=== PATIENT | male | born 1940 | race Two or more races ===

== ENCOUNTER 2019-02-15 11:31 | Inpatient (IN) | payer SELFPAY ==
[~2019-02-15] VITALS: Ht 167.6 cm; Wt 70.3 kg
--- NOTE | 2019-02-15 12:01 | PHYS DOC ---
Past Medical History Past Medical History: Diabetes-Type II, Hypertension Adult General Chief Complaint Chief Complaint: BLOOD SUGAR PROBLEM HPI HPI Patient is a 78 year old male with history of diabetes type 2, hypertension, who presents to the ED today complaining of his blood pressure, blood sugar acting up for 2 days. Patient is also complaining of nausea and diarrhea. Patient states he recently moved to the [facility] from [place] to be with his children. He states when the numbers were checked 2 days ago at home both the blood sugar and blood pressures were high. He is on metformin and Losartan and states he is complaint Drug Safety Physician line was used for Chinese. Review of Systems Review of Systems Constitutional: Denies fever or chills [] Eyes: Denies change in visual acuity, redness, or eye pain [] HENT: Denies nasal congestion or sore throat [] Respiratory: Denies cough or shortness of breath [] Cardiovascular: Reports hypertension. No additional information not addressed in HPI [] GI: Reports nausea and diarrhea. Denies abdominal pain, vomiting, bloody stools : Denies dysuria or hematuria [] Musculoskeletal: Denies back pain or joint pain [] Integument: Denies rash or skin lesions [] Neurologic: Denies headache, focal weakness or sensory changes [] Endocrine: Reports high blood glucose All other systems were reviewed and found to be within normal limits, except as documented in this note. Current Medications Current Medications Current Medications Medications (Trade) Dose Ordered Sig/Ross Start Time Stop Time Status Last Admin Dose Admin Clonidine HCl (Catapres) 0.2 mg 1X ONCE 02/15/19 12:15 02/15/19 12:16 DC 02/15/19 12:49 0.2 MG Info (CONTRAST GIVEN -- Rx MONITORING) 1 each PRN DAILY PRN 02/15/19 13:30 02/17/19 13:29 Iohexol (Omnipaque 300 Mg/ml) 75 ml 1X ONCE 02/15/19 13:30 02/15/19 13:31 DC 02/15/19 13:40 75 ML Labetalol HCl (Normodyne Iv Push) 10 mg 1X ONCE 02/15/19 12:15 02/15/19 12:16 DC 02/15/19 12:55 10 MG Ondansetron HCl (Zofran) 4 mg 1X ONCE 02/15/19 12:45 02/15/19 12:46 DC 02/15/19 12:56 4 MG Sodium Chloride 1,000 ml @ 1,000 mls/hr 1X ONCE 02/15/19 12:45 02/15/19 13:44 DC 02/15/19 12:51 1,000 MLS/HR Allergies Allergies Allergies Coded Allergies Type Severity Reaction Last Updated Verified No Known Drug Allergies 02/15/19 No Physical Exam Physical Exam Constitutional: Well developed, well nourished, no acute distress, non-toxic appearance. [] HENT: Normocephalic, atraumatic, bilateral external ears normal, oropharynx moist, no oral exudates, nose normal. [] Eyes: PERRLA, EOMI, conjunctiva normal, no discharge. Left pupil appears began on the right. Neck: Normal range of motion, no tenderness, supple, no stridor. [] Cardiovascular:Heart rate regular rhythm, no murmur [] Lungs & Thorax: Bilateral breath sounds clear to auscultation [] Abdomen: Bowel sounds normal, soft, no tenderness, no masses, no pulsatile masses. [] Skin: Warm, dry, no erythema, no rash. [] Back: No tenderness, no CVA tenderness. [] Extremities: No tenderness, no cyanosis, no clubbing, ROM intact, no edema. [] Neurologic: Alert and oriented X 3, normal motor function, normal sensory function, no focal deficits noted. Cranial nerves II through XII intact. Psychologic: Affect normal, judgement normal, mood normal. [] Current Patient Data Vital Signs Vital Signs Date Time Temp Pulse Resp B/P (MAP) Pulse Ox O2 Delivery O2 Flow Rate FiO2 02/15/19 12:55 90 176/85 Lab Values Laboratory Tests Test 02/15/19 11:46 02/15/19 12:25 Glucose (Fingerstick) 144 mg/dL (70-99) H White Blood Count 8.4 x10^3/uL (4.0-11.0) Red Blood Count 4.54 x10^6/uL (4.30-5.70) Hemoglobin 14.7 g/dL (13.0-17.5) Hematocrit 43.0 % (39.0-53.0) Mean Corpuscular Volume 95 fL (79-100) Mean Corpuscular Hemoglobin 32 pg (25-35) Mean Corpuscular Hemoglobin Concent 34 g/dL (31-37) Red Cell Distribution Width 13.5 % (11.5-14.5) Platelet Count 215 x10^3/uL (140-400) Neutrophils (%) (Auto) 69 % (31-73) Lymphocytes (%) (Auto) 24 % (24-48) Monocytes (%) (Auto) 5 % (0-9) Eosinophils (%) (Auto) 1 % (0-3) Basophils (%) (Auto) 1 % (0-3) Neutrophils # (Auto) 5.9 x10^3uL (1.8-7.7) Lymphocytes # (Auto) 2.0 x10^3/uL (1.0-4.8) Monocytes # (Auto) 0.4 x10^3/uL (0.0-1.1) Eosinophils # (Auto) 0.1 x10^3/uL (0.0-0.7) Basophils # (Auto) 0.1 x10^3/uL (0.0-0.2) Segmented Neutrophils % 55 % (35-66) Band Neutrophils % 19 % (0-9) H Lymphocytes % 18 % (24-48) L Atypical Lymphocytes % (Manual) 4 % (0-0) H Monocytes % 3 % (0-10) Metamyelocytes % 1 % (0-0) H Platelet Estimate Adequate (ADEQUATE) Prothrombin Time 11.6 SEC (11.7-14.0) L Prothrombin Time INR 0.9 (0.8-1.1) Sodium Level 139 mmol/L (136-145) Potassium Level 3.2 mmol/L (3.5-5.1) L Chloride Level 101 mmol/L (98-107) Carbon Dioxide Level 28 mmol/L (21-32) Anion Gap 10 (6-14) Blood Urea Nitrogen 20 mg/dL (8-26) Creatinine 0.9 mg/dL (0.7-1.3) Estimated GFR (Cockcroft-Gault) 82.0 BUN/Creatinine Ratio 22 (6-20) H Glucose Level 157 mg/dL (70-99) H Calcium Level 9.4 mg/dL (8.5-10.1) Magnesium Level 1.3 mg/dL (1.8-2.4) L Total Bilirubin 1.4 mg/dL (0.2-1.0) H Aspartate Amino Transferase (AST) 30 U/L (15-37) Alanine Aminotransferase (ALT) 40 U/L (16-63) Alkaline Phosphatase 82 U/L (46-116) Creatine Kinase 40 U/L (39-308) Creatine Kinase MB (Mass) 1.2 ng/mL (0.0-3.6) Creatine Kinase MB Relative Index % (0-4) Troponin I Quantitative < 0.017 ng/mL (0.000-0.055) RM-Yre-H-Type Natriuretic Peptide 564 pg/mL (0-449) H Total Protein 7.1 g/dL (6.4-8.2) Albumin 3.5 g/dL (3.4-5.0) Albumin/Globulin Ratio 1.0 (1.0-1.7) Lipase 549 U/L (73-393) H Laboratory Tests 02/15/19 12:25 Laboratory Tests 02/15/19 12:25 EKG EKG Interpreted by Dr. Paris sinus rhythm heart rate 95 no STEMI Radiology/Procedures Radiology/Procedures []PROCEDURE: CT ABD PELV W/ IV CONTRST ONLY Examination: CT of the abdomen pelvis with IV contrast HISTORY: History of nausea, diarrhea, elevated lipase COMPARISON: 11/16/2012 TECHNIQUE: Axial CT images of the abdomen pelvis were performed with IV contrast. Coronal and sagittal reformatted performed Exposure: One or more of the following individualized dose reduction techniques were utilized for this examination: 1. Automated exposure control 2. Adjustment of the mA and/or kV according to patient size 3. Use of iterative reconstruction technique FINDINGS: Minimal bibasilar lung atelectasis. There is a small nodule identified in the left lower lobe of the lung measuring 5 mm. No evidence of free air identified in the abdomen. The visualized liver, spleen, adrenals grossly appears unremarkable the gallbladder is mildly distended The stomach is mildly distended. There is a tiny fatty density identified in the distal pancreas measuring 7 mm. The small bowel is nondilated Feces and gas noted in the colon. Urinary bladder is mildly distended The bilateral kidneys enhance symmetrically. There is a cystic structure identified in the inferior pole of the left kidney measuring 1.1 cm cystic density identified in the right kidney measuring 1.4 cm likely cysts. Multiple colonic diverticulosis. There is mild thickened appearance of the wall of the descending colon.. Urinary bladder is mildly distended Mildly enlarged prostate gland. Focus of sclerotic density identified in the posterior left iliac bone. Moderate degenerative changes. Lumbar spine. IMPRESSION: 1. Mild thickened appearance of the wall of the descending colon could be due to nondistention or mild colitis. 2. Tiny 7 mm fatty density identified in the distal pancreas, nonspecific likely benign. Follow-up nonemergent MRI may be useful for further evaluation. 3. Bilateral renal cysts. 4. Focus of sclerotic density identified in the posterior left iliac bone could be prior biopsy site however a sclerotic bone lesion is not excluded. Recommend nonemergent bone scan for further evaluation. Electronically signed by: Jorge Delatorre MD (02/15/2019 1:54 PM) [id number] DICTATED and SIGNED BY: JORGE DELATORRE MD DATE: 02/15/19 1354 Course & Med Decision Making Course & Med Decision Making Pertinent Labs and Imaging studies reviewed. (See chart for details) This is a 78-year-old male presenting to the ED today complaining of elevated blood glucose and blood pressure for the last 2 days. Also complaining of nausea and diarrhea. Patient states just came from [place]. He is on metformin and losartan. CBC with normal WBC, CMP with potassium of 3.2, patient was given oral potassium replacement. Glucose 157, magnesium 1.3, IV magnesium was ordered, lipase 549. CT of the abdomen and pelvic is negative for pancreatitis, noted for mild colitis. Blood pressures were in the low 200s over low 100s on arrival to the ED. Patient was given labetalol and clonidine. Consulted with Sury SCHMITZ for GI who will follow-up with patient. Consulted with Dr. Salcedo who accepted patient for admission. Patient was continued on IV fluids. Dragon Disclaimer Dragon Disclaimer This electronic medical record was generated, in whole or in part, using a voice recognition dictation system. Departure Departure Impression: Primary Impression: Acute pancreatitis Additional Impressions: Hypomagnesemia Hypokalemia Colitis Hyperglycemia Accelerated hypertension Disposition: 09 ADMITTED INPATIENT Condition: STABLE Problem Qualifiers Primary Impression: Acute pancreatitis Pancreatitis type: unspecified pancreatitis type Acute pancreatitis complication: unspecified Qualified Codes: K85.90 - Acute pancreatitis without necrosis or infection, unspecified DAVID GARDNER SPECIFICATIONS WRITER Feb 15, 2019 12:01
--- NOTE | 2019-02-15 12:10 | EKG ---
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
[2019-02-15] MEDS ORDERED: LABETALOL 20 MG/4 ML DISP.SYRIN. IVP ONE (12:15)
[2019-02-15] MEDS ORDERED: cloNIDine HCL 0.1 MG TABLET PO ONE (12:15)
--- NOTE | 2019-02-15 12:26 | RAD ---
EXAM: CHEST 1 VIEW History: Hypertension COMPARISON: None available. TECHNIQUE: Single portable radiograph of the chest FINDINGS: The cardiac silhouette is unremarkable. The lungs are clear bilaterally. The costophrenic sulci are clear and well demarcated. IMPRESSION: No radiographic evidence of an acute cardiopulmonary process. Electronically signed by: Jorge Delatorre MD (02/15/2019 12:23 PM) [id number]
[2019-02-15 12:36] LABS: BASO # 0.1 x10^3/uL (0.0-0.2); BASO % 1 % (0-3); EOS # 0.1 x10^3/uL (0.0-0.7); EOS % 1 % (0-3); HEMOGLOBIN 14.7 g/dL (13.0-17.5); LYMPH % 24 % (24-48); MEAN CORPUSCULAR HEMOGLOBIN 32 pg (25-35); MEAN CORPUSCULAR HGB CONC 34 g/dL (31-37); MEAN CORPUSCULAR VOLUME 95 fL (79-100); MONO # 0.4 x10^3/uL (0.0-1.1); MONO % 5 % (0-9); NEUT # 5.9 x10^3uL (1.8-7.7); NEUT % 69 % (31-73); PLATELET COUNT 215 x10^3/uL (140-400); RED BLOOD COUNT 4.54 x10^6/uL (4.30-5.70); RED CELL DISTRIBUTION WIDTH 13.5 % (11.5-14.5); WHITE BLOOD COUNT 8.4 x10^3/uL (4.0-11.0)
[2019-02-15] MEDS ORDERED: ONDANSETRON PF 4 MG/2 ML VIAL. IV ONE (12:45)
[2019-02-15] MEDS ORDERED: IV NORMAL SALINE 1000ML BAG 1,000 ML IV ONE ×2 (12:45→15:15)
[2019-02-15 12:47] LABS: PROTHROMBIN TIME PATIENT 11.6 SEC (11.7-14.0)
[2019-02-15 12:48] LABS: CALCIUM 9.4 mg/dL (8.5-10.1); CREATININE 0.9 mg/dL (0.7-1.3); POTASSIUM 3.2 mmol/L (3.5-5.1)
[2019-02-15 12:53] LABS: ALBUMIN 3.5 g/dL (3.4-5.0); MAGNESIUM 1.3 mg/dL (1.8-2.4); TOTAL BILIRUBIN 1.4 mg/dL (0.2-1.0); TOTAL PROTEIN 7.1 g/dL (6.4-8.2)
--- NOTE | 2019-02-15 12:54 | RAD ---
CT HEAD INDICATION: Hypertension COMPARISON: None Available. Exposure: One or more of the following individualized dose reduction techniques were utilized for this examination: 1. Automated exposure control 2. Adjustment of the mA and/or kV according to patient size 3. Use of iterative reconstruction technique TECHNIQUE: 5 mm contiguous axial images were obtained from the skull base to the vertex in both bone and soft tissue algorithm. FINDINGS: Mild bilateral periventricular white matter hypodensities likely chronic small vessel ischemic disease. No evidence of acute intracranial hemorrhage. No extra-axial fluid collections. No mass effect or midline shift. Ventricular size is appropriate. Basal cisterns are patent. No fractures identified.Loyola-white differentiation is preserved.Globes and orbits are within normal limits. Mild mucosal thickening left maxillary sinus. IMPRESSION: No acute intracranial findings. Electronically signed by: Jorge Delatorre MD (02/15/2019 12:51 PM) [id number]
[2019-02-15 13:02] LABS: CREATINE KINASE 40 U/L (39-308)
[2019-02-15 13:17] LABS: % ATYL 4 % (0-0); % BANDS 19 % (0-9); % LYMPHS 18 % (24-48); % MONOS 3 % (0-10); PLT ESTIMATE ADEQUATE (ADEQUATE)
[2019-02-15 13:18] LABS: % METAS 1 % (0-0); % SEGS 55 % (35-66)
[2019-02-15] MEDS ORDERED: CONTRAST GIVEN. MC PRN (13:30)
[2019-02-15] MEDS ORDERED: IOHEXOL 300 MG/ML 100ML VIAL. IV ONE (13:30)
--- NOTE | 2019-02-15 13:57 | RAD ---
Examination: CT of the abdomen pelvis with IV contrast HISTORY: History of nausea, diarrhea, elevated lipase COMPARISON: 11/16/2012 TECHNIQUE: Axial CT images of the abdomen pelvis were performed with IV contrast. Coronal and sagittal reformatted performed Exposure: One or more of the following individualized dose reduction techniques were utilized for this examination: 1. Automated exposure control 2. Adjustment of the mA and/or kV according to patient size 3. Use of iterative reconstruction technique FINDINGS: Minimal bibasilar lung atelectasis. There is a small nodule identified in the left lower lobe of the lung measuring 5 mm. No evidence of free air identified in the abdomen. The visualized liver, spleen, adrenals grossly appears unremarkable the gallbladder is mildly distended The stomach is mildly distended. There is a tiny fatty density identified in the distal pancreas measuring 7 mm. The small bowel is nondilated Feces and gas noted in the colon. Urinary bladder is mildly distended The bilateral kidneys enhance symmetrically. There is a cystic structure identified in the inferior pole of the left kidney measuring 1.1 cm cystic density identified in the right kidney measuring 1.4 cm likely cysts. Multiple colonic diverticulosis. There is mild thickened appearance of the wall of the descending colon.. Urinary bladder is mildly distended Mildly enlarged prostate gland. Focus of sclerotic density identified in the posterior left iliac bone. Moderate degenerative changes. Lumbar spine. IMPRESSION: 1. Mild thickened appearance of the wall of the descending colon could be due to nondistention or mild colitis. 2. Tiny 7 mm fatty density identified in the distal pancreas, nonspecific likely benign. Follow-up nonemergent MRI may be useful for further evaluation. 3. Bilateral renal cysts. 4. Focus of sclerotic density identified in the posterior left iliac bone could be prior biopsy site however a sclerotic bone lesion is not excluded. Recommend nonemergent bone scan for further evaluation. Electronically signed by: Jorge Delatorre MD (02/15/2019 1:54 PM) [id number]
[2019-02-15] MEDS ORDERED: MORPHINE SULFATE 2 MG/ML VIAL. IV PRN (15:15)
[2019-02-15] MEDS ORDERED: ONDANSETRON PF 4 MG/2 ML VIAL. IV PRN (15:15)
[2019-02-15] MEDS ORDERED: MAGNESIUM SULFATE 1GM 100 ML IV ONE (15:15)
[2019-02-15] MEDS ORDERED: POTASSIUM CHLORIDE 20 MEQ TABLET.ER. PO ONE ×2 (15:15→22:30)
--- NOTE | 2019-02-15 15:42 | PDOC2 ---
GI CONSULT Reason For Consult: Pancreatitis HPI: HPI: 78 y/o Slovenian-speaking male seen in ER. 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 Tells me he came to the ER because his blood pressure was elevated - says "250." Additionally, his glucose has also been high at some so he has been trying to eat as much. He denies n/v, reflux/heartburn, dysphagia, abd pain, constipation, hematochezia , melena, and weight loss. Has had some diarrhea x 4 days. Denies precipitating events. Thinks has about 4 loose stools daily - says "it got better but might have started again." No previous EGD or colonoscopy. No GB, liver, pancreas, or PUD history. No NSAIDs. Labs note K 3.2, glucose 157, Mag 1.3, bili 1.4, lipase 549. On CT: mildly distended GB and stomach, tiny 7mm fatty density in the distal pancreas measuring 7 mm, mild thickened appearance of the wall of the descending colon (nondistention vs colitis), and diverticulosis. PMH: PMH: HTN, DM, appendectomy FH: Family History: No pertinent hx (denies cancers) Social History: Smoke: No ALCOHOL: none ROS: GEN: Denies fevers, chills, sweats HEENT: Denies blurred vision, sore throat CV: Denies chest pain RESP: Denies shortness of air, cough GI: Per HPI : Denies hematuria, dysuria ENDO: Denies weight changes NEURO: Denies confusion, dizziness MSK: Denies weakness, joint pain/swelling SKIN: Denies jaundice, pruritus Vitals: Vitals: Vital Signs Date Time Temp Pulse Resp B/P (MAP) Pulse Ox O2 Delivery O2 Flow Rate FiO2 02/15/19 12:55 90 176/85 Labs: Labs: Laboratory Tests Test 02/15/19 11:46 02/15/19 12:25 Glucose (Fingerstick) 144 mg/dL (70-99) White Blood Count 8.4 x10^3/uL (4.0-11.0) Red Blood Count 4.54 x10^6/uL (4.30-5.70) Hemoglobin 14.7 g/dL (13.0-17.5) Hematocrit 43.0 % (39.0-53.0) Mean Corpuscular Volume 95 fL (79-100) Mean Corpuscular Hemoglobin 32 pg (25-35) Mean Corpuscular Hemoglobin Concent 34 g/dL (31-37) Red Cell Distribution Width 13.5 % (11.5-14.5) Platelet Count 215 x10^3/uL (140-400) Neutrophils (%) (Auto) 69 % (31-73) Lymphocytes (%) (Auto) 24 % (24-48) Monocytes (%) (Auto) 5 % (0-9) Eosinophils (%) (Auto) 1 % (0-3) Basophils (%) (Auto) 1 % (0-3) Neutrophils # (Auto) 5.9 x10^3uL (1.8-7.7) Lymphocytes # (Auto) 2.0 x10^3/uL (1.0-4.8) Monocytes # (Auto) 0.4 x10^3/uL (0.0-1.1) Eosinophils # (Auto) 0.1 x10^3/uL (0.0-0.7) Basophils # (Auto) 0.1 x10^3/uL (0.0-0.2) Segmented Neutrophils % 55 % (35-66) Band Neutrophils % 19 % (0-9) Lymphocytes % 18 % (24-48) Atypical Lymphocytes % (Manual) 4 % (0-0) Monocytes % 3 % (0-10) Metamyelocytes % 1 % (0-0) Platelet Estimate Adequate (ADEQUATE) Prothrombin Time 11.6 SEC (11.7-14.0) Prothromb Time International Ratio 0.9 (0.8-1.1) Sodium Level 139 mmol/L (136-145) Potassium Level 3.2 mmol/L (3.5-5.1) Chloride Level 101 mmol/L (98-107) Carbon Dioxide Level 28 mmol/L (21-32) Anion Gap 10 (6-14) Blood Urea Nitrogen 20 mg/dL (8-26) Creatinine 0.9 mg/dL (0.7-1.3) Estimated GFR (Cockcroft-Gault) 82.0 BUN/Creatinine Ratio 22 (6-20) Glucose Level 157 mg/dL (70-99) Calcium Level 9.4 mg/dL (8.5-10.1) Magnesium Level 1.3 mg/dL (1.8-2.4) Total Bilirubin 1.4 mg/dL (0.2-1.0) Aspartate Amino Transf (AST/SGOT) 30 U/L (15-37) Alanine Aminotransferase (ALT/SGPT) 40 U/L (16-63) Alkaline Phosphatase 82 U/L (46-116) Creatine Kinase 40 U/L (39-308) Creatine Kinase MB (Mass) 1.2 ng/mL (0.0-3.6) Creatine Kinase MB Relative Index % (0-4) Troponin I Quantitative < 0.017 ng/mL (0.000-0.055) [id number] Natriuretic Peptide 564 pg/mL (0-449) Total Protein 7.1 g/dL (6.4-8.2) Albumin 3.5 g/dL (3.4-5.0) Albumin/Globulin Ratio 1.0 (1.0-1.7) Lipase 549 U/L (73-393) Allergies: Coded Allergies: No Known Drug Allergies (Unverified , 02/15/19) Medications: Current Medications Medications (Trade) Dose Ordered Sig/Ross Route PRN Reason Start Time Stop Time Status Last Admin Dose Admin Labetalol HCl (Normodyne Iv Push) 10 mg 1X ONCE IVP 02/15/19 12:15 02/15/19 12:16 DC 02/15/19 12:55 Clonidine HCl (Catapres) 0.2 mg 1X ONCE PO 02/15/19 12:15 02/15/19 12:16 DC 02/15/19 12:49 Sodium Chloride 1,000 ml @ 1,000 mls/hr 1X ONCE IV 02/15/19 12:45 02/15/19 13:44 DC 02/15/19 12:51 Ondansetron HCl (Zofran) 4 mg 1X ONCE IV 02/15/19 12:45 02/15/19 12:46 DC 02/15/19 12:56 Iohexol (Omnipaque 300 Mg/ml) 75 ml 1X ONCE IV 02/15/19 13:30 02/15/19 13:31 DC 02/15/19 13:40 Imaging: Imaging: Head CT IMPRESSION: No acute intracranial findings. CXR IMPRESSION: No radiographic evidence of an acute cardiopulmonary process. CT A/P FINDINGS: Minimal bibasilar lung atelectasis. There is a small nodule identified in the left lower lobe of the lung measuring 5 mm. No evidence of free air identified in the abdomen. The visualized liver, spleen, adrenals grossly appears unremarkable the gallbladder is mildly distended. The stomach is mildly distended. There is a tiny fatty density identified in the distal pancreas measuring 7 mm. The small bowel is nondilated. Feces and gas noted in the colon. Urinary bladder is mildly distended. The bilateral kidneys enhance symmetrically. There is a cystic structure identified in the inferior pole of the left kidney measuring 1.1 cm cystic density identified in the right kidney measuring 1.4 cm likely cysts. Multiple colonic diverticulosis. There is mild thickened appearance of the wall of the descending colon. Urinary bladder is mildly distended Mildly enlarged prostate gland. Focus of sclerotic density identified in the posterior left iliac bone. Moderate degenerative changes. Lumbar spine. IMPRESSION: 1. Mild thickened appearance of the wall of the descending colon could be due to nondistention or mild colitis. 2. Tiny 7 mm fatty density identified in the distal pancreas, nonspecific likely benign. Follow-up nonemergent MRI may be useful for further evaluation. 3. Bilateral renal cysts. 4. Focus of sclerotic density identified in the posterior left iliac bone could be prior biopsy site however a sclerotic bone lesion is not excluded. Recommend nonemergent bone scan for further evaluation. PE: GEN: NAD HEENT: Atraumatic, PERRL LUNGS: CTAB HEART: RRR ABD: NABS, S/ND/NT EXTREMITY: No edema SKIN: No rashes, no jaundice NEURO/PSYCH: A & O 3 A/P: A/P: H/o HTN and DM - tells me he came to ER for these reasons Diarrhea Mildly elevated bilirubin and lipase, hypokalemia, hypomagnesemia Abnormal CT - mildly distended GB and stomach, 7mm fatty density in the distal pancreas, mild thickened appearance of wall of descending colon CRC screen - none Diverticulosis -- Unclear significance of mildly elevated lipase and tiny fatty pancreatic density - does not have typical symptoms or risk factors for pancreatitis. Will check RUQ US for completeness. Additional recs per Dr. Cornelius (if any additional pancreatic imaging is indicated). Also unclear significance of mild thickening of descending colon on CT - does mention some diarrhea so will go ahead with stool studies. Okay for clear liquids and ADAT. Can pursue outpt screening colonoscopy. Defer his concerns re: HTN and DM, electrolyte abnormalities, and additional CT findings to primary. RADHA MONTEJO Feb 15, 2019 15:42
--- NOTE | 2019-02-15 16:59 | PDOC1 ---
History and Physical Date of Admission Date of Admission DATE: 02/15/19 TIME: 16:59 Identification/Chief Complaint Chief Complaint SEEN IN ER 78 year old male with history of diabetes type 2, hypertension, who presents to the ED today complaining of his blood pressure, blood sugar up for 2 days. Patient is also complaining of nausea and diarrhea. Patient states he recently moved to the [facility] from [place] to be with his children. He states when the numbers were checked 2 days ago at home both the blood sugar and blood pressures were high. He is on metformin and Losartan and states he is complaint Past Medical History Past Medical History: Diabetes-Type II, Hypertension family hx diabetes Past Medical History Cardiovascular: HTN, Hyperlipidemia Endocrine: Diabetes Family History Family History: Diabetes Social History Smoke: No ALCOHOL: none Drugs: None Current Problem List Problem List Problems Medical Problems: (1) Accelerated hypertension Status: Acute (2) Acute pancreatitis Status: Acute (3) Colitis Status: Acute (4) Hyperglycemia Status: Acute (5) Hypokalemia Status: Acute (6) Hypomagnesemia Status: Acute Current Medications Current Medications Current Medications Labetalol HCl (Normodyne Iv Push) 10 mg 1X ONCE IVP Last administered on at 12:55; Start 02/15/19 at 12:15; Stop 02/15/19 at 12:16; Status DC Clonidine HCl (Catapres) 0.2 mg 1X ONCE PO Last administered on 02/15/19at 12: 49; Start 02/15/19 at 12:15; Stop 02/15/19 at 12:16; Status DC Sodium Chloride 1,000 ml @ 1,000 mls/hr 1X ONCE IV Last administered on at 12:51; Start 02/15/19 at 12:45; Stop 02/15/19 at 13:44; Status DC Ondansetron HCl (Zofran) 4 mg 1X ONCE IV Last administered on 02/15/19at 12:56 ; Start 02/15/19 at 12:45; Stop 02/15/19 at 12:46; Status DC Iohexol (Omnipaque 300 Mg/ml) 75 ml 1X ONCE IV Last administered on 02/15/19at 13:40; Start 02/15/19 at 13:30; Stop 02/15/19 at 13:31; Status DC Info (CONTRAST GIVEN -- Rx MONITORING) 1 each PRN DAILY PRN MC SEE COMMENTS; Start 02/15/19 at 13:30; Stop 02/17/19 at 13:29 Ondansetron HCl (Zofran) 4 mg PRN Q8HRS PRN IV NAUSEA/VOMITING; Start 02/15/19 at 15:15; Stop 02/16/19 at 15:14 Morphine Sulfate (Morphine Sulfate) 2 mg PRN Q2HR PRN IV PAIN; Start 02/15/19 at 15:15; Stop 02/16/19 at 15:14 Sodium Chloride 1,000 ml @ 125 mls/hr 1X ONCE IV ; Start 02/15/19 at 15:15; Stop 02/15/19 at 23:14 Potassium Chloride (Klor-Con) 40 meq 1X ONCE PO Last administered on at 16:08; Start 02/15/19 at 15:15; Stop 02/15/19 at 15:16; Status DC Magnesium Sulfate/ Dextrose 100 ml @ 100 mls/hr 1X ONCE IV Last administered on 02/15/19at 16:13; Start 02/15/19 at 15:15; Stop 02/15/19 at 16:14; Status DC Allergies Allergies: Coded Allergies: No Known Drug Allergies (Unverified , 02/15/19) ROS Review of System Review of Systems Review of Systems Constitutional: Denies fever or chills [] Eyes: Denies change in visual acuity, redness, or eye pain [] HENT: Denies nasal congestion or sore throat [] Respiratory: Denies cough or shortness of breath [] Cardiovascular: Reports hypertension. No additional information not addressed in HPI [] GI: Reports nausea and diarrhea. Denies abdominal pain, vomiting, bloody stools : Denies dysuria or hematuria [] Musculoskeletal: Denies back pain or joint pain [] Integument: Denies rash or skin lesions [] Neurologic: Denies headache, focal weakness or sensory changes [] Endocrine: Reports high blood glucose 14 PT systems were reviewed and found to be within normal limits, except as documented Physical Exam Physical Exam Physical Exam Physical Exam Constitutional: Well developed, well nourished, no acute distress, non-toxic appearance. [] HENT: Normocephalic, atraumatic, bilateral external ears normal, oropharynx moist, no oral exudates, nose normal. [] Eyes: PERRLA, EOMI, conjunctiva normal, no discharge. Left pupil appears began on the right. Neck: Normal range of motion, no tenderness, supple, no stridor. [] Cardiovascular:Heart rate regular rhythm, no murmur [] Lungs & Thorax: Bilateral breath sounds clear to auscultation [] Abdomen: Bowel sounds normal, soft, no tenderness, no masses, no pulsatile masses. [] Skin: Warm, dry, no erythema, no rash. [] Back: No tenderness, no CVA tenderness. [] Extremities: No tenderness, no cyanosis, no clubbing, ROM intact, no edema. [] Neurologic: Alert and oriented X 3, normal motor function, normal sensory function, no focal deficits noted. Cranial nerves II through XII intact. Psychologic: Affect normal, judgement normal, mood normal. [] General: Alert, Oriented X3, Cooperative, mild distress Lungs: Clear to auscultation Heart: RRR, no thrills, no rubs Rectal Exam: not examined Neuro: Cranial nerves 3-12 NL Vitals Vitals Vital Signs Date Time Temp Pulse Resp B/P (MAP) Pulse Ox O2 Delivery O2 Flow Rate FiO2 02/15/19 12:55 90 176/85 Labs Labs Laboratory Tests Test 02/15/19 11:46 02/15/19 12:25 Glucose (Fingerstick) 144 mg/dL (70-99) White Blood Count 8.4 x10^3/uL (4.0-11.0) Red Blood Count 4.54 x10^6/uL (4.30-5.70) Hemoglobin 14.7 g/dL (13.0-17.5) Hematocrit 43.0 % (39.0-53.0) Mean Corpuscular Volume 95 fL (79-100) Mean Corpuscular Hemoglobin 32 pg (25-35) Mean Corpuscular Hemoglobin Concent 34 g/dL (31-37) Red Cell Distribution Width 13.5 % (11.5-14.5) Platelet Count 215 x10^3/uL (140-400) Neutrophils (%) (Auto) 69 % (31-73) Lymphocytes (%) (Auto) 24 % (24-48) Monocytes (%) (Auto) 5 % (0-9) Eosinophils (%) (Auto) 1 % (0-3) Basophils (%) (Auto) 1 % (0-3) Neutrophils # (Auto) 5.9 x10^3uL (1.8-7.7) Lymphocytes # (Auto) 2.0 x10^3/uL (1.0-4.8) Monocytes # (Auto) 0.4 x10^3/uL (0.0-1.1) Eosinophils # (Auto) 0.1 x10^3/uL (0.0-0.7) Basophils # (Auto) 0.1 x10^3/uL (0.0-0.2) Segmented Neutrophils % 55 % (35-66) Band Neutrophils % 19 % (0-9) Lymphocytes % 18 % (24-48) Atypical Lymphocytes % (Manual) 4 % (0-0) Monocytes % 3 % (0-10) Metamyelocytes % 1 % (0-0) Platelet Estimate Adequate (ADEQUATE) Prothrombin Time 11.6 SEC (11.7-14.0) Prothromb Time International Ratio 0.9 (0.8-1.1) Sodium Level 139 mmol/L (136-145) Potassium Level 3.2 mmol/L (3.5-5.1) Chloride Level 101 mmol/L (98-107) Carbon Dioxide Level 28 mmol/L (21-32) Anion Gap 10 (6-14) Blood Urea Nitrogen 20 mg/dL (8-26) Creatinine 0.9 mg/dL (0.7-1.3) Estimated GFR (Cockcroft-Gault) 82.0 BUN/Creatinine Ratio 22 (6-20) Glucose Level 157 mg/dL (70-99) Calcium Level 9.4 mg/dL (8.5-10.1) Magnesium Level 1.3 mg/dL (1.8-2.4) Total Bilirubin 1.4 mg/dL (0.2-1.0) Aspartate Amino Transf (AST/SGOT) 30 U/L (15-37) Alanine Aminotransferase (ALT/SGPT) 40 U/L (16-63) Alkaline Phosphatase 82 U/L (46-116) Creatine Kinase 40 U/L (39-308) Creatine Kinase MB (Mass) 1.2 ng/mL (0.0-3.6) Creatine Kinase MB Relative Index % (0-4) Troponin I Quantitative < 0.017 ng/mL (0.000-0.055) KI-Gui-M-Type Natriuretic Peptide 564 pg/mL (0-449) Total Protein 7.1 g/dL (6.4-8.2) Albumin 3.5 g/dL (3.4-5.0) Albumin/Globulin Ratio 1.0 (1.0-1.7) Lipase 549 U/L (73-393) Laboratory Tests Test 02/15/19 11:46 02/15/19 12:25 Glucose (Fingerstick) 144 mg/dL (70-99) White Blood Count 8.4 x10^3/uL (4.0-11.0) Red Blood Count 4.54 x10^6/uL (4.30-5.70) Hemoglobin 14.7 g/dL (13.0-17.5) Hematocrit 43.0 % (39.0-53.0) Mean Corpuscular Volume 95 fL (79-100) Mean Corpuscular Hemoglobin 32 pg (25-35) Mean Corpuscular Hemoglobin Concent 34 g/dL (31-37) Red Cell Distribution Width 13.5 % (11.5-14.5) Platelet Count 215 x10^3/uL (140-400) Neutrophils (%) (Auto) 69 % (31-73) Lymphocytes (%) (Auto) 24 % (24-48) Monocytes (%) (Auto) 5 % (0-9) Eosinophils (%) (Auto) 1 % (0-3) Basophils (%) (Auto) 1 % (0-3) Neutrophils # (Auto) 5.9 x10^3uL (1.8-7.7) Lymphocytes # (Auto) 2.0 x10^3/uL (1.0-4.8) Monocytes # (Auto) 0.4 x10^3/uL (0.0-1.1) Eosinophils # (Auto) 0.1 x10^3/uL (0.0-0.7) Basophils # (Auto) 0.1 x10^3/uL (0.0-0.2) Segmented Neutrophils % 55 % (35-66) Band Neutrophils % 19 % (0-9) Lymphocytes % 18 % (24-48) Atypical Lymphocytes % (Manual) 4 % (0-0) Monocytes % 3 % (0-10) Metamyelocytes % 1 % (0-0) Platelet Estimate Adequate (ADEQUATE) Prothrombin Time 11.6 SEC (11.7-14.0) Prothromb Time International Ratio 0.9 (0.8-1.1) Sodium Level 139 mmol/L (136-145) Potassium Level 3.2 mmol/L (3.5-5.1) Chloride Level 101 mmol/L (98-107) Carbon Dioxide Level 28 mmol/L (21-32) Anion Gap 10 (6-14) Blood Urea Nitrogen 20 mg/dL (8-26) Creatinine 0.9 mg/dL (0.7-1.3) Estimated GFR (Cockcroft-Gault) 82.0 BUN/Creatinine Ratio 22 (6-20) Glucose Level 157 mg/dL (70-99) Calcium Level 9.4 mg/dL (8.5-10.1) Magnesium Level 1.3 mg/dL (1.8-2.4) Total Bilirubin 1.4 mg/dL (0.2-1.0) Aspartate Amino Transf (AST/SGOT) 30 U/L (15-37) Alanine Aminotransferase (ALT/SGPT) 40 U/L (16-63) Alkaline Phosphatase 82 U/L (46-116) Creatine Kinase 40 U/L (39-308) Creatine Kinase MB (Mass) 1.2 ng/mL (0.0-3.6) Creatine Kinase MB Relative Index % (0-4) Troponin I Quantitative < 0.017 ng/mL (0.000-0.055) AS-Tix-L-Type Natriuretic Peptide 564 pg/mL (0-449) Total Protein 7.1 g/dL (6.4-8.2) Albumin 3.5 g/dL (3.4-5.0) Albumin/Globulin Ratio 1.0 (1.0-1.7) Lipase 549 U/L (73-393) Images Images EXAM: CHEST 1 VIEW History: Hypertension COMPARISON: None available. TECHNIQUE: Single portable radiograph of the chest FINDINGS: The cardiac silhouette is unremarkable. The lungs are clear bilaterally. The costophrenic sulci are clear and well demarcated. IMPRESSION: No radiographic evidence of an acute cardiopulmonary process. Electronically signed by: Jorge Delatorre MD (02/15/2019 12:23 PM) [facility] DICTATED and SIGNED BY: JORGE DELATORRE MD Examination: CT of the abdomen pelvis with IV contrast HISTORY: History of nausea, diarrhea, elevated lipase COMPARISON: 11/16/2012 TECHNIQUE: Axial CT images of the abdomen pelvis were performed with IV contrast. Coronal and sagittal reformatted performed Exposure: One or more of the following individualized dose reduction techniques were utilized for this examination: 1. Automated exposure control 2. Adjustment of the mA and/or kV according to patient size 3. Use of iterative reconstruction technique FINDINGS: Minimal bibasilar lung atelectasis. There is a small nodule identified in the left lower lobe of the lung measuring 5 mm. No evidence of free air identified in the abdomen. The visualized liver, spleen, adrenals grossly appears unremarkable the gallbladder is mildly distended The stomach is mildly distended. There is a tiny fatty density identified in the distal pancreas measuring 7 mm. The small bowel is nondilated Feces and gas noted in the colon. Urinary bladder is mildly distended The bilateral kidneys enhance symmetrically. There is a cystic structure identified in the inferior pole of the left kidney measuring 1.1 cm cystic density identified in the right kidney measuring 1.4 cm likely cysts. Multiple colonic diverticulosis. There is mild thickened appearance of the wall of the descending colon.. Urinary bladder is mildly distended Mildly enlarged prostate gland. Focus of sclerotic density identified in the posterior left iliac bone. Moderate degenerative changes. Lumbar spine. IMPRESSION: 1. Mild thickened appearance of the wall of the descending colon could be due to nondistention or mild colitis. 2. Tiny 7 mm fatty density identified in the distal pancreas, nonspecific likely benign. Follow-up nonemergent MRI may be useful for further evaluation. 3. Bilateral renal cysts. 4. Focus of sclerotic density identified in the posterior left iliac bone could be prior biopsy site however a sclerotic bone lesion is not excluded. Recommend nonemergent bone scan for further evaluation. Electronically signed by: Jorge Delatorre MD (02/15/2019 1:54 PM) [id number] DICTATED and SIGNED BY: JORGE DELATORRE MD DATE: 02/15/19 1354 VTE Prophylaxis Ordered VTE Prophylaxis Devices: Yes VTE Pharmacological Prophylaxi: Yes Assessment/Plan Assessment/Plan IMPRESSION UNCONTROLLED Hypertension, hypertensive urgency hypokalemia diabetes HYPOMAGNESEMIA Mild thickened appearance of the wall of the descending colon could be due to non-distention or mild colitis MILD ELEVATION OF SERUM LIPASE Focus of sclerotic density identified in the posterior left iliac bone could be prior biopsy site however a sclerotic bone lesion is not excluded. Recommend nonemergent bone scan for further evaluation. plan iv hydralazine 10mg q 4 hrs prn bp control GI CONSULT. REPLACE K PO , MG 2 GM IV X 1 DVT PROPHYLAXIS NEEDS pcp PEPE DOWNS MD Feb 15, 2019 16:59
[2019-02-15 17:00] VITALS: BP 142/60
[2019-02-15] MEDS ORDERED: METF850T8 PO (18:46)
[2019-02-15] MEDS ORDERED: LOSA-73 PO (18:46)
[2019-02-15 19:00] VITALS: BP 151/80
[2019-02-15] MEDS ORDERED: MAGNESIUM SULFATE 2GM 50 ML IV ONE (22:30)
[2019-02-15 23:00] VITALS: BP 128/59
[2019-02-16 03:00] VITALS: BP 128/59
[2019-02-16 04:19] LABS: BASO # 0.1 x10^3/uL (0.0-0.2); BASO % 1 % (0-3); EOS # 0.1 x10^3/uL (0.0-0.7); EOS % 1 % (0-3); HEMOGLOBIN 12.2 g/dL (13.0-17.5); LYMPH # 1.5 x10^3/uL (1.0-4.8); LYMPH % 28 % (24-48); MEAN CORPUSCULAR HEMOGLOBIN 32 pg (25-35); MEAN CORPUSCULAR HGB CONC 34 g/dL (31-37); MEAN CORPUSCULAR VOLUME 95 fL (79-100); MONO # 0.3 x10^3/uL (0.0-1.1); MONO % 6 % (0-9); NEUT # 3.3 x10^3uL (1.8-7.7); NEUT % 63 % (31-73); PLATELET COUNT 180 x10^3/uL (140-400); RED BLOOD COUNT 3.79 x10^6/uL (4.30-5.70); RED CELL DISTRIBUTION WIDTH 13.9 % (11.5-14.5); WHITE BLOOD COUNT 5.3 x10^3/uL (4.0-11.0)
[2019-02-16 04:36] LABS: CHOLESTEROL/HDL RATIO 6.1
[2019-02-16 04:39] LABS: ALBUMIN 2.7 g/dL (3.4-5.0); CALCIUM 8.7 mg/dL (8.5-10.1); CREATININE 0.8 mg/dL (0.7-1.3); POTASSIUM 4.1 mmol/L (3.5-5.1); TOTAL PROTEIN 5.5 g/dL (6.4-8.2)
[2019-02-16 07:00] VITALS: BP_SYST 139; BP_SYST 165; BP_DIAS 79
[2019-02-16] MEDS ORDERED: POTASSIUM CHLORIDE 20 MEQ TABLET.ER. PO SCH (08:00)
[2019-02-16 08:57] LABS: BILIRUBIN,URINE NEGATIVE (NEG); CLARITY,URINE CLEAR; COLOR,URINE YELLOW; NITRITE,URINE NEGATIVE (NEG); PH,URINE 6.5; PROTEIN,URINE NEGATIVE (NEG-TRACE)
[2019-02-16] MEDS ORDERED: ONDANSETRON PF 4 MG/2 ML VIAL. IV PRN (09:00)
[2019-02-16] MEDS ORDERED: hydroCHLOROthiazide 25 MG TABLET PO SCH (09:00)
[2019-02-16] MEDS ORDERED: LOSARTAN POTASSIUM 50 MG TABLET. PO SCH (09:00)
[2019-02-16] MEDS ORDERED: DEXTROSE 50% 25 GM / 50ML DISP.SYRIN. IV PRN (09:00)
[2019-02-16 09:05] LABS: BARBITURATES NEG (NEG); BENZODIAZEPINES NEG (NEG); CANNABINOIDS NEG (NEG); COCAINE NEG (NEG); METHADONE NEG (NEG); OPIATES NEG (NEG); PHENCYCLIDINE NEG (NEG)
[2019-02-16 09:06] LABS: BACTERIA,URINE FEW /HPF (0-FEW); RBC,URINE OCC /HPF (0-2); SQUAMOUS EPITHELIAL CELL,UR OCC /LPF
[2019-02-16 09:13] LABS: AMPHETAMINE/METHAMPHETAMINE NEG (NEG)
[2019-02-16] MEDS ORDERED: HYDR-2145 PO (10:39)
--- NOTE | 2019-02-16 10:42 | PDOC3 ---
Discharge Summary Visit Information Date of Admission: Feb 15, 2019 Date of Discharge: Feb 16, 2019 Admitting Diagnosis Comment: Accel hypertension POA Elevated lipase with normal CT Final Diagnosis Problems Medical Problems: (1) Accelerated hypertension Status: Acute (2) Acute pancreatitis Status: Acute (3) Colitis Status: Acute (4) Hyperglycemia Status: Acute (5) Hypokalemia Status: Acute (6) Hypomagnesemia Status: Acute Brief Hospital Course Allergies Allergies Coded Allergies Type Severity Reaction Last Updated Verified No Known Drug Allergies 02/15/19 No Vital Signs Vital Signs Date Time Temp Pulse Resp B/P (MAP) Pulse Ox O2 Delivery O2 Flow Rate FiO2 02/16/19 09:42 69 165/79 02/16/19 07:00 98.2 18 97 Room Air 98.2 Lab Results Laboratory Tests Test 02/15/19 11:46 02/15/19 12:25 02/15/19 16:55 02/15/19 20:55 Glucose (Fingerstick) 144 mg/dL (70-99) 134 mg/dL (70-99) 175 mg/dL (70-99) White Blood Count 8.4 x10^3/uL (4.0-11.0) Red Blood Count 4.54 x10^6/uL (4.30-5.70) Hemoglobin 14.7 g/dL (13.0-17.5) Hematocrit 43.0 % (39.0-53.0) Mean Corpuscular Volume 95 fL (79-100) Mean Corpuscular Hemoglobin 32 pg (25-35) Mean Corpuscular Hemoglobin Concent 34 g/dL (31-37) Red Cell Distribution Width 13.5 % (11.5-14.5) Platelet Count 215 x10^3/uL (140-400) Neutrophils (%) (Auto) 69 % (31-73) Lymphocytes (%) (Auto) 24 % (24-48) Monocytes (%) (Auto) 5 % (0-9) Eosinophils (%) (Auto) 1 % (0-3) Basophils (%) (Auto) 1 % (0-3) Neutrophils # (Auto) 5.9 x10^3uL (1.8-7.7) Lymphocytes # (Auto) 2.0 x10^3/uL (1.0-4.8) Monocytes # (Auto) 0.4 x10^3/uL (0.0-1.1) Eosinophils # (Auto) 0.1 x10^3/uL (0.0-0.7) Basophils # (Auto) 0.1 x10^3/uL (0.0-0.2) Segmented Neutrophils % 55 % (35-66) Band Neutrophils % 19 % (0-9) Lymphocytes % 18 % (24-48) Atypical Lymphocytes % (Manual) 4 % (0-0) Monocytes % 3 % (0-10) Metamyelocytes % 1 % (0-0) Platelet Estimate Adequate (ADEQUATE) Prothrombin Time 11.6 SEC (11.7-14.0) Prothromb Time International Ratio 0.9 (0.8-1.1) Sodium Level 139 mmol/L (136-145) Potassium Level 3.2 mmol/L (3.5-5.1) Chloride Level 101 mmol/L (98-107) Carbon Dioxide Level 28 mmol/L (21-32) Anion Gap 10 (6-14) Blood Urea Nitrogen 20 mg/dL (8-26) Creatinine 0.9 mg/dL (0.7-1.3) Estimated GFR (Cockcroft-Gault) 82.0 BUN/Creatinine Ratio 22 (6-20) Glucose Level 157 mg/dL (70-99) Calcium Level 9.4 mg/dL (8.5-10.1) Magnesium Level 1.3 mg/dL (1.8-2.4) Total Bilirubin 1.4 mg/dL (0.2-1.0) Aspartate Amino Transf (AST/SGOT) 30 U/L (15-37) Alanine Aminotransferase (ALT/SGPT) 40 U/L (16-63) Alkaline Phosphatase 82 U/L (46-116) Creatine Kinase 40 U/L (39-308) Creatine Kinase MB (Mass) 1.2 ng/mL (0.0-3.6) Creatine Kinase MB Relative Index % (0-4) Troponin I Quantitative < 0.017 ng/mL (0.000-0.055) WT-Mbv-X-Type Natriuretic Peptide 564 pg/mL (0-449) Total Protein 7.1 g/dL (6.4-8.2) Albumin 3.5 g/dL (3.4-5.0) Albumin/Globulin Ratio 1.0 (1.0-1.7) Lipase 549 U/L (73-393) Test 02/16/19 03:20 02/16/19 05:00 02/16/19 07:12 02/16/19 08:30 White Blood Count 5.3 x10^3/uL (4.0-11.0) Red Blood Count 3.79 x10^6/uL (4.30-5.70) Hemoglobin 12.2 g/dL (13.0-17.5) Hematocrit 36.0 % (39.0-53.0) Mean Corpuscular Volume 95 fL (79-100) Mean Corpuscular Hemoglobin 32 pg (25-35) Mean Corpuscular Hemoglobin Concent 34 g/dL (31-37) Red Cell Distribution Width 13.9 % (11.5-14.5) Platelet Count 180 x10^3/uL (140-400) Neutrophils (%) (Auto) 63 % (31-73) Lymphocytes (%) (Auto) 28 % (24-48) Monocytes (%) (Auto) 6 % (0-9) Eosinophils (%) (Auto) 1 % (0-3) Basophils (%) (Auto) 1 % (0-3) Neutrophils # (Auto) 3.3 x10^3uL (1.8-7.7) Lymphocytes # (Auto) 1.5 x10^3/uL (1.0-4.8) Monocytes # (Auto) 0.3 x10^3/uL (0.0-1.1) Eosinophils # (Auto) 0.1 x10^3/uL (0.0-0.7) Basophils # (Auto) 0.1 x10^3/uL (0.0-0.2) Sodium Level 143 mmol/L (136-145) Potassium Level 4.1 mmol/L (3.5-5.1) Chloride Level 109 mmol/L (98-107) Carbon Dioxide Level 27 mmol/L (21-32) Anion Gap 7 (6-14) Blood Urea Nitrogen 15 mg/dL (8-26) Creatinine 0.8 mg/dL (0.7-1.3) Estimated GFR (Cockcroft-Gault) 94.0 BUN/Creatinine Ratio 19 (6-20) Glucose Level 114 mg/dL (70-99) Calcium Level 8.7 mg/dL (8.5-10.1) Total Bilirubin 1.0 mg/dL (0.2-1.0) Aspartate Amino Transf (AST/SGOT) 26 U/L (15-37) Alanine Aminotransferase (ALT/SGPT) 34 U/L (16-63) Alkaline Phosphatase 68 U/L (46-116) Total Protein 5.5 g/dL (6.4-8.2) Albumin 2.7 g/dL (3.4-5.0) Albumin/Globulin Ratio 1.0 (1.0-1.7) Triglycerides Level 230 mg/dL (0-150) Cholesterol Level 214 mg/dL (0-200) LDL Cholesterol, Calculated 133 mg/dL (0-100) VLDL Cholesterol, Calculated 46 mg/dL (0-40) Non-HDL Cholesterol Calculated 179 mg/dL (0-129) HDL Cholesterol 35 mg/dL (40-60) Cholesterol/HDL Ratio 6.1 Lipase 345 U/L (73-393) Magnesium Level 2.2 mg/dL (1.8-2.4) Glucose (Fingerstick) 95 mg/dL (70-99) Urine Collection Type Unknown Urine Color Yellow Urine Clarity Clear Urine pH 6.5 Urine Specific [place] 1.010 Urine Protein Negative mg/dL (NEG-TRACE) Urine Glucose (UA) Negative mg/dL (NEG) Urine Ketones (Stick) Trace mg/dL (NEG) Urine Blood Negative (NEG) Urine Nitrite Negative (NEG) Urine Bilirubin Negative (NEG) Urine Urobilinogen Dipstick 1.0 mg/dL (0.2 mg/dL) Urine Leukocyte Esterase Negative (NEG) Urine RBC Occ /HPF (0-2) Urine WBC 1-4 /HPF (0-4) Urine Squamous Epithelial Cells Occ /LPF Urine Bacteria Few /HPF (0-FEW) Urine Mucus Slight /LPF Urine Opiates Screen Neg (NEG) Urine Methadone Screen Neg (NEG) Urine Barbiturates Neg (NEG) Urine Phencyclidine Screen Neg (NEG) Urine Amphetamine/Methamphetamine Neg (NEG) Urine Benzodiazepines Screen Neg (NEG) Urine Cocaine Screen Neg (NEG) Urine Cannabinoids Screen Neg (NEG) Urine Ethyl Alcohol Neg (NEG) Laboratory Tests Test 02/15/19 11:46 02/15/19 12:25 02/15/19 16:55 02/15/19 20:55 Glucose (Fingerstick) 144 mg/dL (70-99) 134 mg/dL (70-99) 175 mg/dL (70-99) White Blood Count 8.4 x10^3/uL (4.0-11.0) Red Blood Count 4.54 x10^6/uL (4.30-5.70) Hemoglobin 14.7 g/dL (13.0-17.5) Hematocrit 43.0 % (39.0-53.0) Mean Corpuscular Volume 95 fL (79-100) Mean Corpuscular Hemoglobin 32 pg (25-35) Mean Corpuscular Hemoglobin Concent 34 g/dL (31-37) Red Cell Distribution Width 13.5 % (11.5-14.5) Platelet Count 215 x10^3/uL (140-400) Neutrophils (%) (Auto) 69 % (31-73) Lymphocytes (%) (Auto) 24 % (24-48) Monocytes (%) (Auto) 5 % (0-9) Eosinophils (%) (Auto) 1 % (0-3) Basophils (%) (Auto) 1 % (0-3) Neutrophils # (Auto) 5.9 x10^3uL (1.8-7.7) Lymphocytes # (Auto) 2.0 x10^3/uL (1.0-4.8) Monocytes # (Auto) 0.4 x10^3/uL (0.0-1.1) Eosinophils # (Auto) 0.1 x10^3/uL (0.0-0.7) Basophils # (Auto) 0.1 x10^3/uL (0.0-0.2) Segmented Neutrophils % 55 % (35-66) Band Neutrophils % 19 % (0-9) Lymphocytes % 18 % (24-48) Atypical Lymphocytes % (Manual) 4 % (0-0) Monocytes % 3 % (0-10) Metamyelocytes % 1 % (0-0) Platelet Estimate Adequate (ADEQUATE) Prothrombin Time 11.6 SEC (11.7-14.0) Prothromb Time International Ratio 0.9 (0.8-1.1) Sodium Level 139 mmol/L (136-145) Potassium Level 3.2 mmol/L (3.5-5.1) Chloride Level 101 mmol/L (98-107) Carbon Dioxide Level 28 mmol/L (21-32) Anion Gap 10 (6-14) Blood Urea Nitrogen 20 mg/dL (8-26) Creatinine 0.9 mg/dL (0.7-1.3) Estimated GFR (Cockcroft-Gault) 82.0 BUN/Creatinine Ratio 22 (6-20) Glucose Level 157 mg/dL (70-99) Calcium Level 9.4 mg/dL (8.5-10.1) Magnesium Level 1.3 mg/dL (1.8-2.4) Total Bilirubin 1.4 mg/dL (0.2-1.0) Aspartate Amino Transf (AST/SGOT) 30 U/L (15-37) Alanine Aminotransferase (ALT/SGPT) 40 U/L (16-63) Alkaline Phosphatase 82 U/L (46-116) Creatine Kinase 40 U/L (39-308) Creatine Kinase MB (Mass) 1.2 ng/mL (0.0-3.6) Creatine Kinase MB Relative Index % (0-4) Troponin I Quantitative < 0.017 ng/mL (0.000-0.055) SL-Wkw-V-Type Natriuretic Peptide 564 pg/mL (0-449) Total Protein 7.1 g/dL (6.4-8.2) Albumin 3.5 g/dL (3.4-5.0) Albumin/Globulin Ratio 1.0 (1.0-1.7) Lipase 549 U/L (73-393) Test 02/16/19 03:20 02/16/19 05:00 02/16/19 07:12 02/16/19 08:30 White Blood Count 5.3 x10^3/uL (4.0-11.0) Red Blood Count 3.79 x10^6/uL (4.30-5.70) Hemoglobin 12.2 g/dL (13.0-17.5) Hematocrit 36.0 % (39.0-53.0) Mean Corpuscular Volume 95 fL (79-100) Mean Corpuscular Hemoglobin 32 pg (25-35) Mean Corpuscular Hemoglobin Concent 34 g/dL (31-37) Red Cell Distribution Width 13.9 % (11.5-14.5) Platelet Count 180 x10^3/uL (140-400) Neutrophils (%) (Auto) 63 % (31-73) Lymphocytes (%) (Auto) 28 % (24-48) Monocytes (%) (Auto) 6 % (0-9) Eosinophils (%) (Auto) 1 % (0-3) Basophils (%) (Auto) 1 % (0-3) Neutrophils # (Auto) 3.3 x10^3uL (1.8-7.7) Lymphocytes # (Auto) 1.5 x10^3/uL (1.0-4.8) Monocytes # (Auto) 0.3 x10^3/uL (0.0-1.1) Eosinophils # (Auto) 0.1 x10^3/uL (0.0-0.7) Basophils # (Auto) 0.1 x10^3/uL (0.0-0.2) Sodium Level 143 mmol/L (136-145) Potassium Level 4.1 mmol/L (3.5-5.1) Chloride Level 109 mmol/L (98-107) Carbon Dioxide Level 27 mmol/L (21-32) Anion Gap 7 (6-14) Blood Urea Nitrogen 15 mg/dL (8-26) Creatinine 0.8 mg/dL (0.7-1.3) Estimated GFR (Cockcroft-Gault) 94.0 BUN/Creatinine Ratio 19 (6-20) Glucose Level 114 mg/dL (70-99) Calcium Level 8.7 mg/dL (8.5-10.1) Total Bilirubin 1.0 mg/dL (0.2-1.0) Aspartate Amino Transf (AST/SGOT) 26 U/L (15-37) Alanine Aminotransferase (ALT/SGPT) 34 U/L (16-63) Alkaline Phosphatase 68 U/L (46-116) Total Protein 5.5 g/dL (6.4-8.2) Albumin 2.7 g/dL (3.4-5.0) Albumin/Globulin Ratio 1.0 (1.0-1.7) Triglycerides Level 230 mg/dL (0-150) Cholesterol Level 214 mg/dL (0-200) LDL Cholesterol, Calculated 133 mg/dL (0-100) VLDL Cholesterol, Calculated 46 mg/dL (0-40) Non-HDL Cholesterol Calculated 179 mg/dL (0-129) HDL Cholesterol 35 mg/dL (40-60) Cholesterol/HDL Ratio 6.1 Lipase 345 U/L (73-393) Magnesium Level 2.2 mg/dL (1.8-2.4) Glucose (Fingerstick) 95 mg/dL (70-99) Urine Collection Type Unknown Urine Color Yellow Urine Clarity Clear Urine pH 6.5 Urine Specific [place] 1.010 Urine Protein Negative mg/dL (NEG-TRACE) Urine Glucose (UA) Negative mg/dL (NEG) Urine Ketones (Stick) Trace mg/dL (NEG) Urine Blood Negative (NEG) Urine Nitrite Negative (NEG) Urine Bilirubin Negative (NEG) Urine Urobilinogen Dipstick 1.0 mg/dL (0.2 mg/dL) Urine Leukocyte Esterase Negative (NEG) Urine RBC Occ /HPF (0-2) Urine WBC 1-4 /HPF (0-4) Urine Squamous Epithelial Cells Occ /LPF Urine Bacteria Few /HPF (0-FEW) Urine Mucus Slight /LPF Urine Opiates Screen Neg (NEG) Urine Methadone Screen Neg (NEG) Urine Barbiturates Neg (NEG) Urine Phencyclidine Screen Neg (NEG) Urine Amphetamine/Methamphetamine Neg (NEG) Urine Benzodiazepines Screen Neg (NEG) Urine Cocaine Screen Neg (NEG) Urine Cannabinoids Screen Neg (NEG) Urine Ethyl Alcohol Neg (NEG) Brief Hospital Course Mr. Mishra is a 78 old /Ind[place]ian-speaking only male admitted because of blood pressure over 200 with elevated lipase at less than < [address] GI consulted, US abd pending, Normal lipase on the second day with blood pressure better. I needed to start some HCTZ 25 blood pressure , BP 160s systolic but no symptoms. Patient no more abdominal pain and eager to go home. If ultrasound negative, home today with no PT needs. Continue losartan 50 once a day and metformin at home. New Rx HCTZ 25 once a day Discharge instructions follow-up PCP 4 weeks regarding BP Discharge Information Condition at Discharge: Improved, Stable Follow Up: Weeks (4 weeks PCP re BP) Disposition/Orders: D/C to Home Scheduled Hydrochlorothiazide (Hydrochlorothiazide Tablet ) 25 Mg Tablet, 25 MG PO DAILY for htn MDD 1, #60 Prescribed by: LISA TOBAR on 02/16/19 1030 Losartan Potassium (Losartan Potassium) 50 Mg Tablet, 50 MG PO DAILY for HYPERTENSION, (Reported) Entered as Reported by: ALICE FLORES on 02/15/191845 Last Taken: UNKNOWN on Unknown Date & Time Last Action: Continued on 02/15 by PEPE DOWNS MD Metformin Hcl (Metformin Hcl) 850 Mg Tablet, 850 MG PO BIDWMEALS for ANTI- DIABETIC, Ref 0 (Reported) Entered as Reported by: ALICE FLORES on 02/15/191845 Last Taken: UNKNOWN on Unknown Date & Time Last Action: Continued on 02/15 by MD EKATERINA CALDERA CHERRIE Y MD Feb 16, 2019 10:42
[2019-02-16 11:00] VITALS: BP 176/90
[2019-02-16] MEDS ORDERED: INSULIN LISPRO 300 UNITS/3 ML INSULN.PEN. SQ SCH (12:00)
--- NOTE | 2019-02-16 12:10 | PDOC ---
Subjective: Subjective: Tolerating clears - diet has not been advanced. Denies n/v, abd pain, and diarrhea. Objective: Objective: No stools charted. Vital Signs: Vital Signs Date Time Temp Pulse Resp B/P (MAP) Pulse Ox O2 Delivery O2 Flow Rate FiO2 02/16/19 11:00 98.0 77 20 176/90 (118) 97 Room Air 98.0 Labs: Laboratory Tests Test 02/15/19 12:25 02/15/19 16:55 02/15/19 20:55 02/16/19 03:20 White Blood Count 8.4 x10^3/uL 5.3 x10^3/uL Red Blood Count 4.54 x10^6/uL 3.79 x10^6/uL Hemoglobin 14.7 g/dL 12.2 g/dL Hematocrit 43.0 % 36.0 % Mean Corpuscular Volume 95 fL 95 fL Mean Corpuscular Hemoglobin 32 pg 32 pg Mean Corpuscular Hemoglobin Concent 34 g/dL 34 g/dL Red Cell Distribution Width 13.5 % 13.9 % Platelet Count 215 x10^3/uL 180 x10^3/uL Neutrophils (%) (Auto) 69 % 63 % Lymphocytes (%) (Auto) 24 % 28 % Monocytes (%) (Auto) 5 % 6 % Eosinophils (%) (Auto) 1 % 1 % Basophils (%) (Auto) 1 % 1 % Neutrophils # (Auto) 5.9 x10^3uL 3.3 x10^3uL Lymphocytes # (Auto) 2.0 x10^3/uL 1.5 x10^3/uL Monocytes # (Auto) 0.4 x10^3/uL 0.3 x10^3/uL Eosinophils # (Auto) 0.1 x10^3/uL 0.1 x10^3/uL Basophils # (Auto) 0.1 x10^3/uL 0.1 x10^3/uL Segmented Neutrophils % 55 % Band Neutrophils % 19 % Lymphocytes % 18 % Atypical Lymphocytes % (Manual) 4 % Monocytes % 3 % Metamyelocytes % 1 % Platelet Estimate Adequate Prothrombin Time 11.6 SEC Prothromb Time International Ratio 0.9 Sodium Level 139 mmol/L 143 mmol/L Potassium Level 3.2 mmol/L 4.1 mmol/L Chloride Level 101 mmol/L 109 mmol/L Carbon Dioxide Level 28 mmol/L 27 mmol/L Anion Gap 10 7 Blood Urea Nitrogen 20 mg/dL 15 mg/dL Creatinine 0.9 mg/dL 0.8 mg/dL Estimated GFR (Cockcroft-Gault) 82.0 94.0 BUN/Creatinine Ratio 22 19 Glucose Level 157 mg/dL 114 mg/dL Calcium Level 9.4 mg/dL 8.7 mg/dL Magnesium Level 1.3 mg/dL Total Bilirubin 1.4 mg/dL 1.0 mg/dL Aspartate Amino Transf (AST/SGOT) 30 U/L 26 U/L Alanine Aminotransferase (ALT/SGPT) 40 U/L 34 U/L Alkaline Phosphatase 82 U/L 68 U/L Creatine Kinase 40 U/L Creatine Kinase MB (Mass) 1.2 ng/mL Creatine Kinase MB Relative Index % Troponin I Quantitative < 0.017 ng/mL JO-Uzr-[id number]-Type Natriuretic Peptide 564 pg/mL Total Protein 7.1 g/dL 5.5 g/dL Albumin 3.5 g/dL 2.7 g/dL Albumin/Globulin Ratio 1.0 1.0 Lipase 549 U/L 345 U/L Glucose (Fingerstick) 134 mg/dL 175 mg/dL Triglycerides Level 230 mg/dL Cholesterol Level 214 mg/dL LDL Cholesterol, Calculated 133 mg/dL VLDL Cholesterol, Calculated 46 mg/dL Non-HDL Cholesterol Calculated 179 mg/dL HDL Cholesterol 35 mg/dL Cholesterol/HDL Ratio 6.1 Test 02/16/19 05:00 02/16/19 07:12 02/16/19 08:30 02/16/19 11:48 Magnesium Level 2.2 mg/dL Glucose (Fingerstick) 95 mg/dL 116 mg/dL Urine Collection Type Unknown Urine Color Yellow Urine Clarity Clear Urine pH 6.5 Urine Specific [place] 1.010 Urine Protein Negative mg/dL Urine Glucose (UA) Negative mg/dL Urine Ketones (Stick) Trace mg/dL Urine Blood Negative Urine Nitrite Negative Urine Bilirubin Negative Urine Urobilinogen Dipstick 1.0 mg/dL Urine Leukocyte Esterase Negative Urine RBC Occ /HPF Urine WBC 1-4 /HPF Urine Squamous Epithelial Cells Occ /LPF Urine Bacteria Few /HPF Urine Mucus Slight /LPF Urine Opiates Screen Neg Urine Methadone Screen Neg Urine Barbiturates Neg Urine Phencyclidine Screen Neg Urine Amphetamine/Methamphetamine Neg Urine Benzodiazepines Screen Neg Urine Cocaine Screen Neg Urine Cannabinoids Screen Neg Urine Ethyl Alcohol Neg Imaging: Abd US pending PE: GEN: NAD LUNGS: CTAB HEART: RRR ABD: NABS, S/ND/NT NEURO/PSYCH: A & O 3 A/P: HTN, DM Diarrhea - resolved Mildly elevated bilirubin and lipase - resolved Abnormal CT - mildly distended GB and stomach, 7mm fatty density in the distal pancreas, mild thickened appearance of wall of descending colon -- Okay to ADAT as ordered yesterday, also note plans for DC. US results pending - follow-up in clinic re: this and for screening colonoscopy plus any additional recs re: further imaging of fatty pancreatic density (MRI, EUS, etc). RADHA MONTEJO Feb 16, 2019 12:10
--- NOTE | 2019-02-16 12:24 | RAD ---
Examination: ABDOMEN LTD History: DX: Elevated lipase IMP: Rt renal cyst, Panc not seen, Fatty Liver Comparison/Correlation: CT abdomen and pelvis with IV contrast Findings: Limited right upper quadrant ultrasound exam was performed. Fatty infiltration of the liver is present. Portal venous flow is normal. Common bile duct measures up to 0.5 cm diameter. Liver length is 15.5 cm. Right kidney measures 12.1 cm x 6.1 cm 6.3 cm. No right hydronephrosis. Pancreas is not visualized. Right renal cyst measures 1.1 cm. No cholelithiasis. No evidence of cholecystitis. Gallbladder somewhat contracted in appearance however. No pericholecystic fluid. No right upper quadrant ascites. Impression: Fatty infiltration of liver. No cholelithiasis or findings of cholecystitis. Electronically signed by: Levi Larkin MD (02/16/2019 12:22 PM) [facility]
[2019-02-16] MEDS ORDERED: cloNIDine HCL 0.1 MG TABLET PO PRN (13:45)
[2019-02-16 14:06] VITALS: BP 176/90
[2019-02-16] MEDS ORDERED: cloNIDine HCL 0.1 MG TABLET PO ONE (14:15)
--- NOTE | 2019-02-16 17:22 | NUR ---
Discharge Note: KARTHIK GUZMAN Discharge instructions and discharge home medications reviewed with Spouse and a copy given. All questions have been answered and understanding verbalized. The following instructions and handouts were given: Discharge Instructions, Pancreatitis, Hypertension Discontinued lines and drains: PIV removed, catheter intact. Patient discharged to Home with Self-Care via Private Vehicle
[2019-02-17 00:09] LABS: HEMOGLOBIN A1C 11.2 % (4.8-5.6)
[2019-02-17] MEDS ORDERED: metFORMIN 850 MG TABLET PO SCH (17:00)
== END 2019-02-16 17:00 | disposition home or self-care (01) | DRG 391 ==
LOC: ER 11:31 → 5 NORTH 14:23
PROVIDERS: ADMIT Family Medicine; ATTEND Family Medicine
DX: K52.9 Noninfective gastroenteritis and colitis, unspecified (principal); K85.90 Acute pancreatitis without necrosis or infection, unspecified; R17 Unspecified jaundice; I16.0 Hypertensive urgency; E11.65 Type 2 diabetes mellitus with hyperglycemia; E78.5 Hyperlipidemia, unspecified; E83.42 Hypomagnesemia; E87.6 Hypokalemia; I10 Essential (primary) hypertension; K57.30 Diverticulosis of large intestine without perforation or abscess without bleeding; N28.1 Cyst of kidney, acquired; N40.0 Benign prostatic hyperplasia without lower urinary tract symptoms; Z83.3 Family history of diabetes mellitus
CPT/HCPCS: 36415; 70450; 71045; 74177; 76705; 80053; 80061; 80307; 81001; 82553; 82962; 83036; 83690; 83735; 83880; 84484; 85007; 85025; 85610; 93005; 96361; 96365; 96375; J1815; J2405; J3475; J3490; J7030; Q9967; 99285-25